=== PATIENT | female | born 1945 | race Caucasian/White ===

== ENCOUNTER → 2016-08-11 | Day surgery (SDC) | payer MEDICARE ==
[2016-08-09 13:08] VITALS: BMI 39.0
[~2016-08-11] VITALS: Ht 162.6 cm; Wt 103.6 kg
[~2016-08-11] MED LIST: AMLO-114 PO; BACL10TA PO; CLON0.5T3 PO; DEXL60CA4 PO; GLUCTAB7 PO; LIDOCAINE HCL 2% 2 ML VIAL (20MG/ML) ONE; LISI-787 PO; LOVA20TA4 PO; METR0.7527 TOP; MINO100C22 PO; NORT50CA PO; OMEG10007 PO; PROPOFOL IV EMULSION 10 MG/ML 20 ML VIAL IV ONE; SULF5LOT2 TOP; ZNTT/150 PO
[2016-08-11 10:23] VITALS: Ht 162.6 cm; Wt 103.6 kg
--- NOTE | 2016-08-11 11:56 | Endo History and Physical ---
History & Physical Date of Service: Aug 11, 2016. Chief Complaint: TUBULOBILLOUS ADEONMA Referring Physician: DR. SANDOVAL History of Present Illness 71 yo CF who presents for colonoscopy secondary to history of colon polyps. Past Medical History Arthritis, Reflux, High Cholesterol, Hypertension Past Surgical History Hx Cardiac Surgery: No Hx Internal Defibrillator: No Hx Pacemaker: No Hx Abdominal Surgery: Yes (PAIGE BSO, ROSA, APPY) Hx of Implantable Prosthesis: No Hx Post-Op Nausea and Vomiting: No Hx Cancer Surgery: No Hx Thoracic Surgery: No Hx Orthopedic: No Hx Urinary Tract Surgery: No Family History None Social History Smoking Status: Former Smoker Hx Substance Use: No Hx Alcohol Use: No Allergies Coded Allergies: NO KNOWN DRUG ALLERGIES (Verified Allergy, Unknown, ., 08/11/16) Adhesives (Unverified Adverse Reaction, Unknown, RASH, 08/11/16) Current Medications Reported Home Medications Medications Dose Route/Sig Max Daily Dose Days Date Category Glucosamine Chondroitin (Unhtzcotzhb-Footwbcslws-Kma C-) 1 Tab Tab 2 Tab PO QAM 08/09/16 Reported Sodium Sulfacetamide (Sulfacetamide Sodium (Acne)) 10 % Lot 1 Dose TOP HS 08/09/16 Reported Metrogel (Metronidazole (Topical)) 0.75 % Gel 1 Dose TOP QAM 08/09/16 Reported Lioresal (Baclofen) 10 Mg Tab 10 Mg PO BID 01/29/16 Reported Pamelor (Nortriptyline Hcl) 50 Mg Cap 50 Mg PO HS 01/29/16 Reported Dexilant (Dexlansoprazole) 60 Mg Cap 1 Cap PO QAM 01/29/16 Reported Klonopin (Clonazepam) 0.5 Mg Tab 0.5 Mg PO LUNCH 01/29/16 Reported Norvasc (Amlodipine Besylate) 10 Mg Tab 10 Mg PO QPM 01/29/16 Reported Zantac (Ranitidine HCl) 150 Mg Tab 150 Mg PO BID 01/14/15 Reported Mevacor (Lovastatin) 20 Mg Tab 20 Mg PO HS 01/14/15 Reported Zestoretic 20MG/12.5MG (HCTZ/Lisinopril) Tab 1 Tab PO QAM 01/14/15 Reported [place]-3 (Fish Oil) 1 Ea Cap 1,200 Mg PO BID 01/14/15 Reported Vital Signs Weight (Kilograms): 103.64 Height (Feet): 5 Height (Inches): 4 Date Time Temp Pulse Resp B/P Pulse Ox O2 Delivery O2 Flow Rate FiO2 08/11/16 10:37 36.6 85 18 203/78 96 Room Air Physical Exam General Appearance: WD/WN, no apparent distress Respiratory/Chest: Auscultation: breath sounds normal Cardiovascular: Heart Auscultation: RRR Abdomen: Bowel Sounds: normal Inspection & Palpation: soft, non-distended, no tenderness, guarding & rebound Assessment and Plan Assessment: 71 yo CF who presents for colonoscopy secondary to history of colon polyps. Plan: Proceed with colonoscopy.
--- NOTE | 2016-08-11 12:22 | GI REPORT ---
Procedure Date: 08/11/2016 11:39 AM Procedure: Colonoscopy Indications: High risk colon cancer surveillance: Personal history of colonic polyps, Last colonoscopy: January 2016 Medicines: Monitored Anesthesia Care Complications: No immediate complications. Estimated Blood Loss: Estimated blood loss: none. Procedure: Pre-Anesthesia Assessment: - Prior to the procedure, a History and Physical was performed, and patient medications and allergies were reviewed. The patient's tolerance of previous anesthesia was also reviewed. The risks and benefits of the procedure and the sedation options and risks were discussed with the patient. All questions were answered, and informed consent was obtained. Prior Anticoagulants: The patient has taken no previous anticoagulant or antiplatelet agents. ASA Grade Assessment: II - A patient with mild systemic disease. After reviewing the risks and benefits, the patient was deemed in satisfactory condition to undergo the procedure. After I obtained informed consent, the scope was passed under direct vision. Throughout the procedure, the patient's blood pressure, pulse, and oxygen saturations were monitored continuously. The scope was introduced through the anus and advanced to the cecum, identified by appendiceal orifice and ileocecal valve. The colonoscopy was performed without difficulty. The patient tolerated the procedure well. The quality of the bowel preparation was good. The ileocecal valve, appendiceal orifice, and rectum were photographed. Findings: A 5 mm polyp was found in the ascending colon. The polyp was sessile. The polyp was removed with a hot snare. Resection and retrieval were complete. Multiple small-mouthed diverticula were found in the sigmoid colon. Non-bleeding internal hemorrhoids were found during retroflexion. The hemorrhoids were small. Impression: - One 5 mm polyp in the ascending colon, removed with a hot snare. Resected and retrieved. - Diverticulosis in the sigmoid colon. - Non-bleeding internal hemorrhoids. Recommendation: - Resume previous diet. - Continue present medications. - Repeat colonoscopy for surveillance based on pathology results. - Return to primary care physician as previously scheduled. Ayan Fabian, DO 08/11/2016 12:22:21 PM This report has been signed electronically. Note Initiated On: 08/11/2016 11:39 AM I attest to the content of the Intraoperative Record and orders documented therein, exceptions below
--- NOTE | 2016-08-11 12:23 | Discharge Instructions ---
Endoscopy Patient Instructions Date / Procedure(s) Performed Aug 11, 2016. Colonoscopy Allergy Information Coded Allergies: NO KNOWN DRUG ALLERGIES (Verified Allergy, Unknown, ., 08/11/16) Adhesives (Unverified Adverse Reaction, Unknown, RASH, 08/11/16) Discharge Date / Findings Aug 11, 2016. Colon polyp Diverticulosis Internal hemorrhoids Medication Instructions Stopped Medication(s): PATIENT INSRUCTED TO STOP TAKING LISINOPRIL/HCTZ FOR THE PROCEDURE. OK to resume all medications today as prescribed Reported Home Medications Medications Dose Route/Sig Max Daily Dose Days Date Category Glucosamine Chondroitin (Tghcoabfbey-Mlaipcklzyg-Ntd C-) 1 Tab Tab 2 Tab PO QAM 08/09/16 Reported Sodium Sulfacetamide (Sulfacetamide Sodium (Acne)) 10 % Lot 1 Dose TOP HS 08/09/16 Reported Metrogel (Metronidazole (Topical)) 0.75 % Gel 1 Dose TOP QAM 08/09/16 Reported Lioresal (Baclofen) 10 Mg Tab 10 Mg PO BID 01/29/16 Reported Pamelor (Nortriptyline Hcl) 50 Mg Cap 50 Mg PO HS 01/29/16 Reported Dexilant (Dexlansoprazole) 60 Mg Cap 1 Cap PO QAM 01/29/16 Reported Klonopin (Clonazepam) 0.5 Mg Tab 0.5 Mg PO LUNCH 01/29/16 Reported Norvasc (Amlodipine Besylate) 10 Mg Tab 10 Mg PO QPM 01/29/16 Reported Zantac (Ranitidine HCl) 150 Mg Tab 150 Mg PO BID 01/14/15 Reported Mevacor (Lovastatin) 20 Mg Tab 20 Mg PO HS 01/14/15 Reported Zestoretic 20MG/12.5MG (HCTZ/Lisinopril) Tab 1 Tab PO QAM 01/14/15 Reported [place]-3 (Fish Oil) 1 Ea Cap 1,200 Mg PO BID 01/14/15 Reported Provider Instructions Activity Restrictions - No exercising or heavy lifting for 24 hours. - Do not drink alcohol the day of the procedure. - Do not drive a car or operate machinery until the day after the procedure. - Do not make any important decisions or sign important papers in 24 hours after the procedure. Following Day: - Return to full activity which may include returning to work/school. Diet Start your diet with liquids and light foods (jello, soup, juice, toast). Then eat your usual diet if not nauseated. Treatment For Common After Affects For mild abdominal pain, bloating, or excessive gas: - Rest - Eat lightly - Lie on right side Follow-Up Information Follow-up with DR. SANDOVAL as scheduled Anesthesia Information What You Should Know You have had a procedure that required some medicine to reduce anxiety and discomfort. This treatment is called moderate sedation. After receiving the treatment, you may be sleepy, but you will be able to breathe on your own. The effects of the treatment may last for several hours. Follow these instructions along with Activity/Diet recommendations noted above: * Do NOT do anything where dizziness or clumsiness would be dangerous. * Rest quietly at home today, then you can be up and about tomorrow. * Have a responsible person stay with you the rest of today. * You may have had an I.V. today. If so, you may take the dressing off later today. Recommendations Call your doctor if: * Trouble breathing * Continuous vomiting for more than 24 hours * Temperature above 101 degrees * Severe abdominal pain or bloating * Pain not relieved by pain medicine ordered * There is increased drainage or redness from any incision * A large amount of rectal bleeding greater than 2-3 tablespoons. (If you had a polyp/s removed or have hemorrhoids, a small amount of blood - from the rectum is to be expected.) * You have any unanswered questions or concerns. IN THE EVENT OF A SERIOUS EMERGENCY, GO TO THE NEAREST EMERGENCY ROOM Your discharge instructions were prepared by provider Ayan Fabian. Patient Instructions Signature Page Patient (or Guardian) Signature/Date: I have read and understand the instructions given to me by my caregivers. Caregiver/RN/Doctor Signature/Date: The above-named patient and/or guardian has received patient instructions on this date. + Original Patient Signature Page (only) stays with chart. Please make copy for patient.
[2016-08-11 12:48] VITALS: BP 149/71; PULSE 70; O2SAT 96
--- NOTE | 2016-08-11 13:34 | Anesthesiology Progress Note ---
Anesthesia Post Op Note Date & Time Aug 11, 2016 at 13:33 Vital Signs Pain Intensity: 0 Vital Signs Past 12 Hours Date Time Temp Pulse Resp B/P Pulse Ox O2 Delivery O2 Flow Rate FiO2 08/11/16 12:48 70 18 149/71 96 Room Air 08/11/16 12:34 70 18 136/66 96 Room Air 08/11/16 12:19 72 18 122/56 96 Room Air 08/11/16 10:37 36.6 85 18 203/78 96 Room Air Notes Mental Status: alert / awake / arousable Nausea / Vomiting: adequately controlled Pain: adequately controlled Airway Patency, RR, SpO2: stable & adequate BP & HR: stable & adequate Hydration State: stable & adequate Anesthetic Complications: no major complications apparent
== END | disposition home or self-care (01) ==
LOC: C.GI 10:09
PROVIDERS: ATTEND Internal Medicine
DX: Z12.11 Encounter for screening for malignant neoplasm of colon (principal); Z86.010 Personal history of colon polyps; D12.2 Benign neoplasm of ascending colon; K57.30 Diverticulosis of large intestine without perforation or abscess without bleeding; K64.8 Other hemorrhoids; I10 Essential (primary) hypertension; E66.9 Obesity, unspecified; Z68.39 Body mass index [BMI] 39.0-39.9, adult; E78.00 Pure hypercholesterolemia, unspecified; Z90.49 Acquired absence of other specified parts of digestive tract; Z90.89 Acquired absence of other organs; Z87.891 Personal history of nicotine dependence

== ENCOUNTER → 2017-03-14 | Day surgery (SDC) | payer MEDICARE ==
[2017-03-02 13:41] VITALS: BMI 39.0
[~2017-03-14] VITALS: Ht 162.6 cm; Wt 102.7 kg
[~2017-03-14] MED LIST changes: +BOTULINUM TOXIN TYPE A 100 UNIT VIAL IM SCH; +FENTANYL CITRATE INJ 50 MCG/1 ML 2 ML VIAL ONE; -SULF5LOT2 TOP
[2017-03-14 12:48] VITALS: Ht 162.6 cm; Wt 102.7 kg
--- NOTE | 2017-03-14 13:16 | Endo History and Physical ---
History & Physical Date of Service: Mar 14, 2017. Chief Complaint: Botox for dysphagia Referring Physician: Dr. Tate History of Present Illness 72 yo CF who presents for EGD with Botox secondary to esophageal dysphagia. Past Medical History Arthritis, Reflux, High Cholesterol, Hypertension Past Surgical History Hx Cardiac Surgery: No Hx Internal Defibrillator: No Hx Pacemaker: No Hx Abdominal Surgery: Yes (PAIGE BSO, ROSA, APPY) Hx Post-Op Nausea and Vomiting: No Hx Cancer Surgery: No Hx Thoracic Surgery: No Hx Orthopedic: No Hx Urinary Tract Surgery: No Family History Polyp Social History Smoking Status: Former Smoker Hx Substance Use: No Hx Alcohol Use: No Allergies Coded Allergies: NO KNOWN DRUG ALLERGIES (Verified Allergy, Unknown, ., 03/02/17) Adhesives (Unverified Adverse Reaction, Unknown, RASH, 03/02/17) Current Medications Reported Home Medications Medications Dose Route/Sig Max Daily Dose Days Date Category Minocin (Minocycline HCl) 100 Mg Cap 100 Mg PO BID 03/02/17 Reported Glucosamine Chondroitin (Irvtautwjhz-Bnonknvsvzw-Cex C-) 1 Tab Tab 2 Tab PO QAM 08/09/16 Reported Metrogel (Metronidazole (Topical)) 0.75 % Gel 1 Dose TOP QAM 08/09/16 Reported Lioresal (Baclofen) 10 Mg Tab 10 Mg PO BID 01/29/16 Reported Pamelor (Nortriptyline Hcl) 50 Mg Cap 50 Mg PO HS 01/29/16 Reported Dexilant (Dexlansoprazole) 60 Mg Cap 1 Cap PO QAM 01/29/16 Reported Klonopin (Clonazepam) 0.5 Mg Tab 0.5 Mg PO LUNCH 01/29/16 Reported Zantac (Ranitidine HCl) 150 Mg Tab 150 Mg PO BID 01/14/15 Reported Mevacor (Lovastatin) 20 Mg Tab 20 Mg PO HS 01/14/15 Reported Zestoretic 20MG/12.5MG (HCTZ/Lisinopril) Tab 1 Tab PO QAM 01/14/15 Reported [place]-3 (Fish Oil) 1 Ea Cap 1,200 Mg PO BID 01/14/15 Reported Vital Signs Weight (Kilograms): 102.73 Height (Feet): 5 Height (Inches): 4 Date Time Temp Pulse Resp B/P (MAP) Pulse Ox O2 Delivery O2 Flow Rate FiO2 03/14/17 12:56 36.8 84 18 190/90 (123) 98 Room Air Physical Exam General Appearance: WD/WN, no apparent distress Respiratory/Chest: Auscultation: breath sounds normal Cardiovascular: Heart Auscultation: RRR Abdomen: Bowel Sounds: normal Inspection & Palpation: soft, non-distended, no tenderness, guarding & rebound Assessment and Plan Assessment: 72 yo CF who presents for EGD with Botox secondary to esophageal dysphagia. Plan: Proceed with colonoscopy.
--- NOTE | 2017-03-14 14:28 | GI REPORT ---
Procedure Date: 03/14/2017 2:06 PM Procedure: Upper GI endoscopy Indications: Dysphagia Medicines: Monitored Anesthesia Care Complications: No immediate complications. Estimated Blood Loss: Estimated blood loss: none. Procedure: Pre-Anesthesia Assessment: - Prior to the procedure, a History and Physical was performed, and patient medications and allergies were reviewed. The patient's tolerance of previous anesthesia was also reviewed. The risks and benefits of the procedure and the sedation options and risks were discussed with the patient. All questions were answered, and informed consent was obtained. Prior Anticoagulants: The patient has taken no previous anticoagulant or antiplatelet agents. ASA Grade Assessment: II - A patient with mild systemic disease. After reviewing the risks and benefits, the patient was deemed in satisfactory condition to undergo the procedure. After obtaining informed consent, the endoscope was passed under direct vision. Throughout the procedure, the patient's blood pressure, pulse, and oxygen saturations were monitored continuously. The scope was introduced through the mouth, and advanced to the second part of duodenum. The upper GI endoscopy was accomplished without difficulty. The patient tolerated the procedure well. Findings: Diffuse candidiasis was found in the entire esophagus. Cells for cytology were obtained by brushing. No endoscopic abnormality was evident in the esophagus to explain the patient's complaint of dysphagia. It was decided, however, to proceed with dilation of the entire esophagus. A guidewire was placed and the scope was withdrawn. Dilation was performed with a Savary dilator with mild resistance at 51 Fr. Area was successfully injected with 100 units botulinum toxin. A small hiatus hernia was present. The examined duodenum was normal. Impression: - Monilial esophagitis. Cells for cytology obtained. - No endoscopic esophageal abnormality to explain patient's dysphagia. Esophagus dilated. Dilated. Injected with botulinum toxin. - Small hiatus hernia. - Normal examined duodenum. Recommendation: - Resume previous diet. - Continue present medications. - Await pathology results. - Return to GI office as previously scheduled. Ayan Fabian, DO 03/14/2017 2:28:05 PM This report has been signed electronically. Note Initiated On: 03/14/2017 2:06 PM I attest to the content of the Intraoperative Record and orders documented therein, exceptions below
--- NOTE | 2017-03-14 14:37 | Anesthesiology Progress Note ---
Anesthesia Post Op Note Date & Time Mar 14, 2017 at 14:37 Vital Signs Pain Intensity: 0 Vital Signs Past 12 Hours Date Time Temp Pulse Resp B/P (MAP) Pulse Ox O2 Delivery O2 Flow Rate FiO2 03/14/17 14:30 68 12 142/66 (91) 99 Room Air 03/14/17 12:56 36.8 84 18 190/90 (123) 98 Room Air Notes Mental Status: alert / awake / arousable, participated in evaluation Pt Amnestic to Procedure: Yes Nausea / Vomiting: adequately controlled Pain: adequately controlled Airway Patency, RR, SpO2: stable & adequate BP & HR: stable & adequate Hydration State: stable & adequate Anesthetic Complications: no major complications apparent
--- NOTE | 2017-03-14 14:40 | Discharge Instructions ---
Endoscopy Patient Instructions Date / Procedure(s) Performed Mar 14, 2017. EGD Allergy Information Coded Allergies: NO KNOWN DRUG ALLERGIES (Verified Allergy, Unknown, ., 03/02/17) Adhesives (Unverified Adverse Reaction, Unknown, RASH, 03/02/17) Discharge Date / Findings Mar 14, 2017. Esophageal dilation Injection of Botox to distal esophagus Esophageal brushings to evaluate for Isi esophagus Hi[employer]idays Medication Instructions OK to resume all medications today as prescribed Reported Home Medications Medications Dose Route/Sig Max Daily Dose Days Date Category Minocin (Minocycline HCl) 100 Mg Cap 100 Mg PO BID 03/02/17 Reported Glucosamine Chondroitin (Aypacingxdi-Jlqjinxdfnq-Wbl C-) 1 Tab Tab 2 Tab PO QAM 08/09/16 Reported Metrogel (Metronidazole (Topical)) 0.75 % Gel 1 Dose TOP QAM 08/09/16 Reported Lioresal (Baclofen) 10 Mg Tab 10 Mg PO BID 01/29/16 Reported Pamelor (Nortriptyline Hcl) 50 Mg Cap 50 Mg PO HS 01/29/16 Reported Dexilant (Dexlansoprazole) 60 Mg Cap 1 Cap PO QAM 01/29/16 Reported Klonopin (Clonazepam) 0.5 Mg Tab 0.5 Mg PO LUNCH 01/29/16 Reported Zantac (Ranitidine HCl) 150 Mg Tab 150 Mg PO BID 01/14/15 Reported Mevacor (Lovastatin) 20 Mg Tab 20 Mg PO HS 01/14/15 Reported Zestoretic 20MG/12.5MG (HCTZ/Lisinopril) Tab 1 Tab PO QAM 01/14/15 Reported [place]-3 (Fish Oil) 1 Ea Cap 1,200 Mg PO BID 01/14/15 Reported Provider Instructions Activity Restrictions - No exercising or heavy lifting for 24 hours. - Do not drink alcohol the day of the procedure. - Do not drive a car or operate machinery until the day after the procedure. - Do not make any important decisions or sign important papers in 24 hours after the procedure. Following Day: - Return to full activity which may include returning to work/school. Diet Start your diet with liquids and light foods (jello, soup, juice, toast). Then eat your usual diet if not nauseated. Treatment For Common After Affects For mild abdominal pain, bloating, or excessive gas: - Rest - Eat lightly - Lie on right side Follow-Up Information Follow-up with Dr. Tate as scheduled Anesthesia Information What You Should Know You have had a procedure that required some medicine to reduce anxiety and discomfort. This treatment is called moderate sedation. After receiving the treatment, you may be sleepy, but you will be able to breathe on your own. The effects of the treatment may last for several hours. Follow these instructions along with Activity/Diet recommendations noted above: * Do NOT do anything where dizziness or clumsiness would be dangerous. * Rest quietly at home today, then you can be up and about tomorrow. * Have a responsible person stay with you the rest of today. * You may have had an I.V. today. If so, you may take the dressing off later today. Recommendations Call your doctor if: * Trouble breathing * Continuous vomiting for more than 24 hours * Temperature above 101 degrees * Severe abdominal pain or bloating * Pain not relieved by pain medicine ordered * There is increased drainage or redness from any incision * A large amount of rectal bleeding greater than 2-3 tablespoons. (If you had a polyp/s removed or have hemorrhoids, a small amount of blood - from the rectum is to be expected.) * You have any unanswered questions or concerns. IN THE EVENT OF A SERIOUS EMERGENCY, GO TO THE NEAREST EMERGENCY ROOM Your discharge instructions were prepared by provider Ayan Fabian. Patient Instructions Signature Page Patient (or Guardian) Signature/Date: I have read and understand the instructions given to me by my caregivers. Caregiver/RN/Doctor Signature/Date: The above-named patient and/or guardian has received patient instructions on this date. + Original Patient Signature Page (only) stays with chart. Please make copy for patient.
[2017-03-14 15:00] VITALS: BP 177/88; PULSE 63; O2SAT 96
== END | disposition home or self-care (01) ==
LOC: C.GI 12:10
PROVIDERS: ATTEND Internal Medicine
DX: R13.10 Dysphagia, unspecified (principal); K22.4 Dyskinesia of esophagus; K20.9 Esophagitis, unspecified; K44.9 Diaphragmatic hernia without obstruction or gangrene